=== PATIENT | male | born 1970 | race Caucasian/White ===

== ENCOUNTER 2022-03-11 10:27 | Emergency (ER) | payer OTHER, SELFPAY ==
[2022-03-11 10:28] VITALS: BP 167/148; PULSE 62; RESP 18; TEMP 36.2; O2SAT 98; BMI 27.7
--- NOTE | 2022-03-11 11:02 | EX.ED.VIS.EY ---
HPI History of Present Illness Chief Complaint: Eye Problem Detail of Chief Complaint: Decreased vision of left eye Informant: patient and spouse/S.O. Onset/Context/Timing Location: Left Eye Onset: Today Context: Gradual Onset Timing: Continuous Current Severity: Moderate Maximum Severity: Moderate Associated Symptoms Associated Symptoms - Eyes: Pain and Redness Visual Changes: left: Blurred vision History of injury: No Visual correction: Glasses and Corrective contact lenses Narrative Narrative: 51-year-old male no seen past medical history. No prior eye surgery. Patient states he wears contacts and glasses. He works as a wander. Saturday he noticed some discomfort in his left eye became more red today he has decreased vision in his left eye. Pain with redness and increased watering of the eye. Denies any trauma. Says he stopped using his contacts yesterday. Denies any purulent discharge. Prior similar symptoms: No Recent Illness/Hospitalization: No PFSH PFSH Medical History no medical history no medical history Home Medications No Known/Unobtainable [No Known Home Medications] 08/11/16 [History Last Taken Unknown] Allergy/AdvReac Type Severity Reaction Status Date / Time No Known Allergies Allergy Verified 03/11/22 10:28 Social History Smoking Status: Current every day smoker tobacco type: cigarettes ROS ROS ED ROS Narrative Denies any recent illness. Review of Systems ROS Unobtainable: Denies due to encephalopathy Constitutional Constitutional ED: Denies chills or fever(s) Eyes Eyes: Denies blurry vision ENT ENT ED: Denies ear pain Cardiovascular Cardiovascular: Denies chest pain Respiratory/Chest Respiratory/Chest: Denies cough or dyspnea Gastrointestinal Gastrointestinal: Denies abdominal pain Genitourinary Genitourinary ED: Denies dysuria or hematuria Musculoskeletal Musculoskeletal: Denies arthralgias Integumentary Denies abscess Neurologic Neurologic: Denies headache(s) Psychiatric Psychiatric: Denies anxiety Endocrine Endocrinology: Denies polydipsia Hematologic/Lymphatic Hematologic/Lymphatic: Denies easy bleeding Allergic/Immunologic Allergic/Immunologic ED: Denies mouth swelling or tongue swelling EXAM Physical Exam Narrative Exam Narrative: 51-year-old male no acute distress vital signs stable as above his blood pressure is elevated 167/148. H EENT exam pupils round reactive light. About 3 mm bilaterally. Left eye is red. Increased watering. Upper and lower lids are slightly erythematous and swollen. Extraocular motions are intact bilaterally. His left eye the cornea appears to be cloudy. The sclera is injected. There is no purulent discharge. Right eye appears normal. Lungs are clear. Heart regular rhythm. Otherwise exam unremarkable. Const Vital Signs: 03/11/22 10:28 Temperature 97.1 F L Temperature Source Temporal Pulse Rate 62 Respiratory Rate 18 Blood Pressure 167/148 H Blood Pressure Mean 154 Pulse Ox 98 Oxygen Delivery Method Room Air Positive well nourished and well developed General Appearance ED: well developed and NAD HEENT HEENT Narrative: Left eye injected, upper and lower lids slightly reddened swollen. Left cornea is cloudy. atraumatic; Negative for trauma Eyes Eyes Narrative: Pupils are round reactive light. Extra motions are intact bilaterally. Injected left eye. Mildly red and swollen left upper and lower lid mildly. Left cornea is cloudy. There is no orbital cellulitis or tenderness. No preauricular lymphadenopathy. Decreased stye. Neck no lymphadenopathy, supple and no JVD General: Negative for tenderness Resp normal respiratory effort, no retractions, no use of accessory muscles and clear to auscultation bilaterally Cardio regular rate, regular rhythm, S1 normal heart sound, S2 normal heart sound and no murmurs GI non-tender, non-distended and no masses Inspection: Negative for other Auscultation: normoactive bowel sounds Palpation: soft Back/Spine no CVA tenderness General Back: Negative for CVA tenderness Extremity normal to inspection General Extremety ED: Negative for edema General Extremity: Negative for edema Neuro oriented x3 and moves all extremities Sensorium / Orientation: alert, oriented to person, oriented to place and oriented to time; Negative for orientation impaired Motor Exam: strength 5/5 throughout Psych Attitude: No agitated Mood & Affect: Negative for depressed, anxious, tearful or other Skin no wounds Lesions: no lesions Rashes: no rashes Trauma: Negative for abrasion or laceration MDM MDM MDM Narrative Medical decision making narrative: 51-year-old male wears contact lenses. He has decreased vision in his left eye with irritation, redness and watering. Tetracaine drops were instilled in his left eye along with fluorescein dye. Slit-lamp examination was performed. He has an injected left eye. There appears to be a corneal ulcer at about 3:00 lateral aspect of the pupil. I do not see any foreign body or corneal abrasion. The cornea appears cloudy. There is increased watering but no discharge. I discussed this with the lead injection mold technician on-call he wanted me to start the patient on moxifloxacin eyedrops 1 drop left eye every 2 hours and he will see him in their office tonight at 8:00. Nurses did the visual acuity and patient with his glasses on could not make out any of the numbers on the eye chart. He can see shapes and light. Discharge Plan Triage Chief Complaint: Eye Problem ED Provider: Tejas Collins Dx/Rx/DC Orders Clinical Impression: Decreased vision of left eye, Corneal ulcer, Contact lens related conjunctivitis Instructions: ED Corneal Injury, Contact Lens, ED Corneal Ulcer Prescriptions: No Action No Known Home Medications Primary Care Provider: Gm Gillespie Referrals: Tee Mcneil MD [Med Staff - Active Staff] - (The eye doctor will see you tonight at their office at 8 PM. Be at the [facility] at the front door at 8 PM and he will do an exam on your eye.) Gm Gillespie DO [Primary Care Provider] - Activity Restrictions/Additional Instructions: Keep your contacts out of both eyes. Use your glasses. Use 1 eyedrop in your left eye every 2 hours. I spoke with the lead injection mold technician on-call Dr. Tee Mcneil. He will see the [facility] at 8:00 tonight to do an exam on your eye. Disposition Disposition: Home, Self Care
--- NOTE | 2022-03-11 11:18 | ED.RN ---
Meds at bedside, Dr Collins aware.
[2022-03-11] MEDS: Fluorescein 1 MG STRIP 1 STRIP LEFT EYE (11:56)
[2022-03-11] MEDS: Tetracaine 0.5% Ophthalmic Bottle 5 DRP LEFT EYE (11:57)
[2022-03-11] MEDS: MOXIFLOXACIN HCL LEFT EYE (12:41)
[2022-03-11 12:42] VITALS: BP 129/95; PULSE 59
== END 2022-03-11 12:47 | disposition home or self-care (01) ==
PROVIDERS: Emergency Provider Emergency Medicine; PCP Preventive Medicine Occupational Medicine; Visit Provider Emergency Medicine
DX: H16.002 Unspecified corneal ulcer, left eye (principal); X58.XXXA Exposure to other specified factors, initial encounter; H10.89 Other conjunctivitis; F17.210 Nicotine dependence, cigarettes, uncomplicated
CPT/HCPCS: 99283